=== PATIENT | male | born 1995 | race Hispanic/Latino ===

== ENCOUNTER 2021-08-08 09:11 | Emergency (ER) | payer SELFPAY ==
[2021-08-08] MEDS ORDERED: IBUPROFEN 200 MG TAB PO ONE (09:29)
[2021-08-08 10:42] LABS: SARS-COV-2 RT PCR POSITIVE (NEGATIVE)
--- NOTE | 2021-08-08 10:52 | EDPHYS ---
Physician Documentation [facility] Name: Palomo De La Torre Age: 25 yrs Sex: Male : 1995 Arrival Date: 08/08/2021 Time: 09:12 Bed Waiting Private MD: MANUELA Physician Ibrahima Fiore HPI: 08/08 10:49 This 25 yrs old Male presents to ER via Ambulatory with complaints of body kb aches, Sore Throat, Chest Pain, Numbness. 10:49 The patient or guardian reports flu symptoms, low-grade fever, myalgias. Onset: The kb symptoms/episode began/occurred this morning. Severity of symptoms: At their worst the symptoms were moderate, in the emergency department the symptoms are unchanged. Modifying factors: The symptoms are alleviated by nothing, the symptoms are aggravated by nothing. Associated signs and symptoms: Pertinent positives: fever, sore throat, Pertinent negatives: chest pain, diarrhea, ear ache, nausea, rhinorrhea, vomiting. The patient has not experienced similar symptoms in the past. The patient has not recently seen a physician. Pt reports headache, bodyaches, sore throat and chills that started this morning and have gotten worse. Historical: - Allergies: 09:26 No Known Allergies; iw - Home Meds: 09:26 None [Active]; iw - PMHx: 09:26 None; iw - PSHx: 09:26 None; iw - Immunization history:: Client reports receiving the 1st dose of the Covid vaccine. - Social history:: Smoking status: Patient reports the use of cigarette tobacco products, smokes one-half pack cigarettes per day. ROS: 10:49 Respiratory: Negative for shortness of breath, cough, wheezing, and pleuritic chest kb pain. 10:49 Constitutional: Positive for body aches, chills, fever. 10:49 ENT: Positive for sore throat. 10:49 Neuro: Positive for headache. 10:49 All other systems are negative. Exam: 10:49 Constitutional: This is a well developed, well nourished patient who is awake, alert, kb and in no acute distress. Head/Face: Normocephalic, atraumatic. ENT: Moist Mucous membranes Cardiovascular: Regular rate and rhythm with a normal S1 and S2. No gallops, murmurs, or rubs. No pulse deficits. Respiratory: Respirations even and unlabored. No increased work of breathing. Talking in full sentences Skin: Warm, dry with normal turgor. Normal color. MS/ Extremity: Pulses equal, no cyanosis. Neurovascular intact. Full, normal range of motion. Neuro: Awake and alert, GCS 15, oriented to person, place, time, and situation. Moves all extremities. Normal gait. Psych: Awake, alert, with orientation to person, place and time. Behavior, mood, and affect are within normal limits. Vital Signs: 09:23 BP 134 / 67; Pulse 76; Resp 18; Temp 100.7; Pulse Ox 100% ; Weight 77.11 kg; Height 5 iw ft. 8 in. (172.72 cm); Pain 8/10; 09:23 Body Mass Index 25.85 (77.11 kg, 172.72 cm) iw MDM: 09:28 Patient medically screened. kb 10:50 Data reviewed: vital signs, nurses notes. Data interpreted: Pulse oximetry: on room air kb is 100 %. Interpretation: normal. Counseling: I had a detailed discussion with the patient and/or guardian regarding: the historical points, exam findings, and any diagnostic results supporting the discharge/admit diagnosis, lab results, the need for outpatient follow up, a family practitioner, to return to the emergency department if symptoms worsen or persist or if there are any questions or concerns that arise at home. 08/08 09:28 Order name: COVID-19/FLU A+B (Document "Date of Onset" if Symptomatic); Complete Time: kb 10:43 Administered Medications: 09:30 Drug: Ibuprofen 600 mg Route: PO; iw Disposition: 08/09 08:42 Co-signature as Attending Physician, Ibrahima Fiore MD I agree with the assessment and kirk plan of care. Disposition Summary: 08/08/21 10:50 Discharge Ordered Location: Home kb Condition: Stable kb Diagnosis - Coronavirus infection, unspecified kb Followup: kb - With: Emergency Department - When: As needed - Reason: Worsening of condition Followup: kb - With: Private Physician - When: 2 - 3 days - Reason: Recheck today's complaints, Continuance of care, Re-evaluation by your physician Discharge Instructions: - Discharge Summary Sheet kb - Viral Respiratory Infection, [id number] kb - COVID-19 kb Forms: - Medication Reconciliation Form kb - Thank You Letter kb - Antibiotic Education kb - Prescription Opioid Use kb Signatures: Dispatcher [employer] EDTeri Martinez, METAL DEALER-C METAL DEALER-Ibrahima Combs MD MD cha Williams, Irene, MARY RN iw Corrections: (The following items were deleted from the chart) 08/08 09:26 09:26 PMHx: Unable to Obtain; iw iw
--- NOTE | 2021-08-08 10:52 | ER ---
Nurse's Notes [facility] Name: Palomo De La Torre Age: 25 yrs Sex: Male : 1995 Arrival Date: 08/08/2021 Time: 09:12 Bed Waiting Private MD: Diagnosis: Coronavirus infection, unspecified Presentation: 08/08 09:23 Chief complaint: Patient states: headache, shaking, bodyaches, sore throat that started iw this morning. Coronavirus screen: Vaccine status: Patient reports receiving the 1st dose of the Covid vaccine. sore throat. Ebola Screen: Patient negative for fever greater than or equal to 101.5 degrees Fahrenheit, and additional compatible Ebola Virus Disease symptoms Patient denies exposure to infectious person. Patient denies travel to an Ebola-affected area in the 21 days before illness onset. No symptoms or risks identified at this time. Initial Sepsis Screen: Does the patient meet any 2 criteria? No. Patient's initial sepsis screen is negative. Does the patient have a suspected source of infection? No. Patient's initial sepsis screen is negative. Risk Assessment: Do you want to hurt yourself or someone else? Patient reports no desire to harm self or others. Onset of symptoms was August 08, 2021. 09:23 Method Of Arrival: Ambulatory iw 09:23 Acuity: DILLON 4 iw Triage Assessment: :26 General: Appears in no apparent distress. comfortable, Behavior is calm, cooperative. iw Pain: Complains of pain in bodyaches. Historical: - Allergies: 09: No Known Allergies; iw - Home Meds: : None [Active]; iw - PMHx: : None; iw - PSHx: : None; iw - Immunization history:: Client reports receiving the 1st dose of the Covid vaccine. - Social history:: Smoking status: Patient reports the use of cigarette tobacco products, smokes one-half pack cigarettes per day. Screenin:30 Abuse screen: Denies threats or abuse. Denies injuries from another. Nutritional iw screening: No deficits noted. Tuberculosis screening: No symptoms or risk factors identified. Fall Risk None identified. Assessment: 09:30 General: Appears in no apparent distress. uncomfortable, Behavior is calm, cooperative. iw Pain: Complains of pain in body aches. Respiratory: Airway is patent Respiratory effort is even, unlabored, Breath sounds are clear bilaterally. EENT: Throat is clear. Vital Signs: 09:23 BP 134 / 67; Pulse 76; Resp 18; Temp 100.7; Pulse Ox 100% ; Weight 77.11 kg; Height 5 iw ft. 8 in. (172.72 cm); Pain 8/10; 09:23 Body Mass Index 25.85 (77.11 kg, 172.72 cm) iw ED Course: 09:12 Patient arrived in ED. as :26 Triage completed. iw 09: Arm band placed on right wrist. iw 09:27 Teri Soto FNP-C is PHCP. kb 09:27 Ibrahima Fiore MD is Attending Physician. kb 09:30 Jessica Bae, RN is Primary Nurse. iw 09:30 No provider procedures requiring assistance completed. iw Administered Medications: : Drug: Ibuprofen 600 mg Route: PO; iw Outcome: 10:50 Discharge ordered by . kb 11:05 Patient left the ED. iw Signatures: Teri Soto FNP-C FNP-Raisa Mcdaniels as Jessica Bae, RN RN iw Corrections: (The following items were deleted from the chart) : 09:26 PMHx: Unable to Obtain; iw iw
[2021-08-08 11:12] VITALS: BP 134/67; TEMP 100.7; O2SAT 100
== END 2021-08-08 11:05 | disposition home or self-care (01) ==
LOC: ER 09:11
DX: U07.1 COVID-19 (principal); F17.210 Nicotine dependence, cigarettes, uncomplicated
CPT/HCPCS: 0240U; 99282

== ENCOUNTER 2021-09-28 19:55 | Emergency (ER) | payer SELFPAY ==
--- OUTSIDE RECORDS SUMMARY | 2021-09-28 19:59 | XMS REPORT | Continuity of Care Document ---
:1995 Author Organization [facility] t Address [address] [place] [address] Care Team Providers Name Role Phone Unavailable Unavailable Unavailable Payers Payer Name Policy Type Policy Number Effective Date Expiration Date S ource Problems This patient has no known problems. Allergies, Adverse Reactions, Alerts Allergy Allergy Status Severity Reaction(s) Onset Inactive Treating Comm ents Source Name Type Date Date Clinician No Known DA Active U 2017-0 [facility] Allergie 01-31 [facility] Medications This patient has no known medications. Procedures This patient has no known procedures. Results This patient has no known results.
--- NOTE | 2021-09-28 21:13 | RAD REPORT ---
EXAM DESCRIPTION: CT - CTHCSPWOC - 09/28/2021 8:56 pm CLINICAL HISTORY: Trauma, head and neck injury. trauma COMPARISON: No comparisons TECHNIQUE: Axial 5 mm thick images of the head were obtained. Axial 2 mm thick images of the cervical spine were obtained with sagittal and coronal reconstruction images generated and reviewed. All CT scans are performed using dose optimization technique as appropriate and may include automated exposure control or mA/KV adjustment according to patient size. FINDINGS: CT HEAD WITHOUT CONTRAST: No acute hemorrhage, hydrocephalus or extra-axial collection is identified.No areas of brain edema or midline shift. The paranasal sinuses and mastoids are clear.The calvarium is intact. CT CERVICAL SPINE WITHOUT CONTRAST: No fracture or subluxation.No prevertebral soft tissues swelling is identified. IMPRESSION: No acute intracranial or cervical spine findings.
--- NOTE | 2021-09-28 21:15 | RAD REPORT ---
EXAM DESCRIPTION: CT - CTFB CLINICAL HISTORY: TRAUMA Facial pain and swelling. COMPARISON: No comparisons TECHNIQUE: Axial 2 mm thick images of the face were obtained with sagittal and coronal reconstructio n images. All CT scans are performed using dose optimization technique as appropriate and may include automated exposure control or mA/KV adjustment according to patient size. FINDINGS: No acute facial bone fracture is seen.The mandible is intact. The globes and orbital contents are grossly unremarkable.The paranasal sinuses and mastoids are clear . IMPRESSION: Negative for facial bone fracture.
[2021-09-28] MEDS ORDERED: TETANUS & DIPHTHERIA TOX,ADULT 0.5 ML VIAL ONE (21:36)
[2021-09-28] MEDS ORDERED: HYDROCODONE/APAP 7.5/325 MG TAB ONE (21:37)
[2021-09-28] MEDS ORDERED: LIDOCAINE 1% 20 ML MDV ONE (22:13)
--- NOTE | 2021-09-28 22:50 | ER ---
Nurse's Notes [facility] Name: Palomo De La Torre Age: 25 yrs Sex: Male : 1995 Arrival Date: 09/28/2021 Time: 19:58 Bed 15 Private MD: Diagnosis: Concussion with loss of consciousness of unspecified duration;Laceration without foreign body of nose;Contusion of unspecified part of head, initial encounter Presentation: 09/28 20:06 Chief complaint: Patient states: States a medal tarik fell from about 20 ft and struck me ll3 in the face, C/O H/A, Confirmed LOC. Coronavirus screen: At this time, the client does not indicate any symptoms associated with coronavirus-19. Ebola Screen: No symptoms or risks identified at this time. Initial Sepsis Screen: Does the patient meet any 2 criteria? No. Patient's initial sepsis screen is negative. Does the patient have a suspected source of infection? No. Patient's initial sepsis screen is negative. Risk Assessment: Do you want to hurt yourself or someone else? Patient reports no desire to harm self or others. Onset of symptoms was September 28, 2021 at 15:00. Care prior to arrival: Medication(s) given: Motrin, 1600 mg. 20:06 Method Of Arrival: Ambulatory ll3 20:06 Acuity: DILLON 3 ll3 Triage Assessment: 20:10 General: Appears in no apparent distress. uncomfortable, Behavior is calm, cooperative. ll3 Pain: Complains of pain in left side of nose, H/A. Neuro: Level of Consciousness is awake, alert, obeys commands, Oriented to person, place, time, situation. Cardiovascular: Patient's skin is warm and dry. Respiratory: Respiratory effort is even, unlabored, Respiratory pattern is regular, symmetrical. Derm: Wound noted left side of nose. Historical: - Home Meds: 20:10 Minocycline Oral once daily [Active]; ll3 - PMHx: 20:10 Asthma; ll3 - Immunization history:: Client reports receiving the 1st dose of the Covid vaccine. - Social history:: Smoking status: Reported history of juuling and/or vaping. Screenin:30 Abuse screen: Denies threats or abuse. Denies injuries from another. Nutritional tk1 screening: No deficits noted. Tuberculosis screening: No symptoms or risk factors identified. Fall Risk None identified. Assessment: 21:30 General: Appears uncomfortable, well groomed, well developed, well nourished, Behavior tk1 is calm, cooperative, appropriate for age. Pain: Complains of pain in face Pain does not radiate. Pain currently is 8 out of 10 on a pain scale. Quality of pain is described as sharp, Pain began 4 hours ago. Is continuous. Cardiovascular: No deficits noted. Capillary refill < 3 seconds is brisk in bilateral fingers Clubbing of nail beds is absent. Respiratory: Airway is patent Trachea midline Respiratory effort is even, unlabored, Respiratory pattern is regular, symmetrical. GI: No deficits noted. No signs and/or symptoms were reported involving the gastrointestinal system. : No deficits noted. No signs and/or symptoms were reported regarding the genitourinary system. EENT: No deficits noted. No signs and/or symptoms were reported regarding the EENT system. Derm: Skin Laceration to left side of nose at left nare. Bleeding controlled. Musculoskeletal: No deficits noted. No signs and/or symptoms reported regarding the musculoskeletal system. Range of motion: intact in all extremities. Injury Description: Laceration sustained to left side of nose is clean, 0.5 to 2.5 cm long, not bleeding, was sustained 4-6 hours ago. 22:30 Reassessment: No changes from previously documented assessment. Patient is alert, tk1 oriented x 3, equal unlabored respirations, skin warm/dry/pink. 23:15 Reassessment: Triple antibiotic applied to suture laceration on nose. Covered with band tk1 aid. D/C per PA order. Discharge/Prescriptions instructions given to patient and SO. Verbalized understanding. Vital Signs: 20:06 BP 143 / 47; Pulse 75; Resp 16; Temp 98.1(TE); Pulse Ox 99% on R/A; Weight 79.38 kg ll3 (R); Height 5 ft. 8 in. (172.72 cm) (R); Pain 8/10; 21:30 BP 136 / 62 RA Supine (auto/reg); Pulse 69 MON; Resp 18 S; Pulse Ox 100% on R/A; Pain tk1 8/10; 22:25 Pain 4/10; tk1 22:30 BP 140 / 75 RA Supine (auto/reg); Pulse 74 MON; Resp 16 S; Temp 97.9(O); Pulse Ox 100% tk1 on R/A; Pain 5/10; 20:06 Body Mass Index 26.61 (79.38 kg, 172.72 cm) ll3 Sarah Coma Score: 20:30 Eye Response: spontaneous(4). Verbal Response: oriented(5). Motor Response: obeys cp commands(6). Total: 15. ED Course: 19:58 Patient arrived in ED. ja2 20:09 Triage completed. ll3 20:10 Arm band placed on left wrist. ll3 20:15 Ibrahima Bermudez PA is PHCP. cp 20:15 Cordell Butterfield MD is Attending Physician. cp 20:20 Noemy Sandy is Primary Nurse. tk1 20:56 CT Facial Bones W/O Con In Process Unspecified. EDMS 20:56 CT Head C Spine In Process Unspecified. EDMS 21:30 Patient has correct armband on for positive identification. Bed in low position. Call tk1 light in reach. Side rails up X 1. Adult w/ patient. Pulse ox on. NIBP on. 22:45 Assist provider with laceration repair on nose that was 2.5 cm. or less using sutures. tk1 Set up tray. Performed by Ibrahima PURVIS Patient tolerated well. 22:45 Patient did not have IV access during this emergency room visit. tk1 Administered Medications: 21:37 Drug: Hydrocodone-Acetaminophen (7.5 mg-325 mg) 1 tabs Route: PO; tk1 22:25 Follow up: Pain 4/10 Adult; Response: Pain is decreased tk1 21:37 Drug: Tetanus-Diphtheria Toxoid Adult 0.5 ml {Improvement Specialist: Bringrr. Exp: tk1 10/17/2021. Lot #: [id number]. } Route: IM; Site: left deltoid; 22:25 Follow up: Response: No adverse reaction tk1 22:26 Not Given (Duplicate Order): Tetanus-Diphtheria Toxoid Adult 0.5 ml IM once tk1 22:30 Drug: Lidocaine (2 %) 5 ml {Note: Per HYUN Bro.} Volume: 5 ml; Route: tk1 Infiltration; Site: wound; Outcome: 22:45 Discharged to home ambulatory, with family. tk1 22:45 Condition: stable 22:45 Discharge instructions given to patient, family, Instructed on discharge instructions, follow up and referral plans. medication usage, Demonstrated understanding of instructions, follow-up care, medications, Prescriptions given X 2. 22:49 Discharge ordered by . pattie 23:21 Patient left the ED. tk1 Signatures: Dispatcher [employer] EDMS Ibrahima Bermudez PA PA cp Alexander, Jessica ja2 Alexandra Venegas RN RN ll3 Noemy Sandy tk1 Corrections: (The following items were deleted from the chart) 20:13 20:06 Chief complaint: Patient states: States a medal tarik fell from about 20 ft and ll3 struck me in the face, C/O H/A ll3 : 22:27 General: Appears uncomfortable, well groomed, well developed, well nourished, tk1 Behavior is calm, cooperative, appropriate for age, tk1 : 22:27 Pain: Complains of pain in face Pain does not radiate. Pain currently is 8 out of tk1 10 on a pain scale. Quality of pain is described as sharp, Pain began 4 hours ago. Is continuous, tk1 : 22:27 Cardiovascular: No deficits noted. Capillary refill < 3 seconds is brisk in tk1 bilateral fingers Clubbing of nail beds is absent tk1 : 22:27 Respiratory: Airway is patent Trachea midline Respiratory effort is even, tk1 unlabored, Respiratory pattern is regular, symmetrical, tk1 : 22:27 GI: No deficits noted. No signs and/or symptoms were reported involving the tk1 gastrointestinal system. tk1 : 22:27 : No deficits noted. No signs and/or symptoms were reported regarding the tk1 genitourinary system. tk1 22:27 EENT: No deficits noted. No signs and/or symptoms were reported regarding the tk1 EENT system. tk1 : 22:27 Derm: Skin Laceration to left side of nose at left nare. Bleeding controlled. tk1 tk1 :41 22:27 Musculoskeletal: No deficits noted. No signs and/or symptoms reported regarding tk1 the musculoskeletal system. Range of motion: intact in all extremities, tk1 : 22:27 Injury Description: Laceration sustained to left side of nose is clean, 0.5 to tk1 2.5 cm long, not bleeding, was sustained 4-6 hours ago. tk1
--- NOTE | 2021-09-28 22:50 | EDPHYS ---
Physician Documentation [facility] Name: Palomo De La Torre Age: 25 yrs Sex: Male : 1995 Arrival Date: 09/28/2021 Time: 19:58 Bed 15 Private MD: ED Physician Cordell Butterfield HPI: 09/28 20:30 This 25 yrs old Male presents to ER via Ambulatory with complaints of Fall cp Injury, FACE INNJURY. 20:30 The patient or guardian reports injury, a laceration, swelling, tenderness. cp 20:30 The complaints affect the nose. Context of injury: The problem was sustained at work, cp resulted from a direct blow, metal pipe fell approximately 20 feet and struck patient in the head and across the nose. Onset: The symptoms/episode began/occurred today. Associated signs and symptoms: Loss of consciousness: This patient experience a loss of consciousness, that was brief, Pertinent negatives: incontinence, neck pain, seizure, vomiting. Historical: - Home Meds: 20:10 Minocycline Oral once daily [Active]; ll3 - PMHx: 20:10 Asthma; ll3 - Immunization history:: Client reports receiving the 1st dose of the Covid vaccine. - Social history:: Smoking status: Reported history of juuling and/or vaping. ROS: 20:35 Constitutional: Negative for body aches, chills, fever, poor PO intake. cp 20:35 Neck: Negative for pain with movement, pain at rest, stiffness. cp 20:35 Cardiovascular: Negative for chest pain, edema, palpitations. 20:35 Respiratory: Negative for cough, shortness of breath, wheezing. 20:35 Abdomen/GI: Negative for abdominal pain, nausea, vomiting, and diarrhea. 20:35 Skin: Positive for laceration(s), of the nose. 20:35 Neuro: Positive for loss of consciousness, Negative for altered mental status, weakness. 20:35 All other systems are negative. Exam: 20:45 Constitutional: The patient appears in no acute distress, alert, awake, cp non-diaphoretic, non-toxic, well developed, well nourished, uncomfortable. 20:45 Head/face: Noted is swelling, that is moderate, of the nose, tenderness, that is cp moderate, of the nose, Sinus tenderness, is not appreciated. 20:45 Eyes: Periorbital structures: appear normal, Pupils: equal, round, and reactive to light and accomodation, Extraocular movements: intact throughout, Conjunctiva: normal, no exudate, no injection, Lids and lashes: appear normal, bilaterally. 20:45 ENT: External ear(s): are unremarkable, Nose: Nasal septum: is midline, no septal hematoma appreciated, bleeding, is seen from the left nare, and is minimal, Mouth: Lips: moist, Oral mucosa: moist, Posterior pharynx: Airway: no evidence of obstruction, patent, Voice: is normal. 20:45 Neck: External neck: tenderness, that is mild, of the left mid cervical area, right mid cervical area, left trapezius, lower cervical area and right trapezius, ROM/movement: limited range of motion, is not appreciated, nuchal rigidity, is not appreciated. 20:45 Chest/axilla: Inspection: normal, Palpation: is normal, no crepitus, no tenderness. 20:45 Cardiovascular: Rate: normal, Rhythm: regular. 20:45 Respiratory: the patient does not display signs of respiratory distress, Respirations: normal, no use of accessory muscles, no retractions, labored breathing, is not present, Breath sounds: are clear throughout, no decreased breath sounds. 20:45 Abdomen/GI: Exam negative for discomfort, distension, guarding, Inspection: abdomen appears normal. 20:45 Back: pain, is absent, ROM is normal. 20:45 Neuro: Orientation: to person, place \T\ time. Mentation: is normal, Cerebellar function: is grossly normal, Motor: moves all fours, strength is normal, Sensation: is normal. Vital Signs: 20:06 BP 143 / 47; Pulse 75; Resp 16; Temp 98.1(TE); Pulse Ox 99% on R/A; Weight 79.38 kg ll3 (R); Height 5 ft. 8 in. (172.72 cm) (R); Pain 8/10; 21:30 BP 136 / 62 RA Supine (auto/reg); Pulse 69 MON; Resp 18 S; Pulse Ox 100% on R/A; Pain tk1 8/10; 22:25 Pain 4/10; tk1 22:30 BP 140 / 75 RA Supine (auto/reg); Pulse 74 MON; Resp 16 S; Temp 97.9(O); Pulse Ox 100% tk1 on R/A; Pain 5/10; 20:06 Body Mass Index 26.61 (79.38 kg, 172.72 cm) ll3 Sarah Coma Score: 20:30 Eye Response: spontaneous(4). Verbal Response: oriented(5). Motor Response: obeys cp commands(6). Total: 15. Laceration: 22:47 Wound Repair of 1.5cm ( 0.6in ) subcutaneous laceration to left side of nose. Linear cp shaped.. Distal neuro/vascular/tendon intact. Anesthesia: Wound infiltrated with 3 mls of 1% lidocaine. Wound prep: Simple cleansing by nurse. Skin closed with 2 6-0 Prolene using simple sutures and sterile technique. Dressed with Bacitracin. Patient tolerated well. MDM: 20:28 Patient medically screened. cp 21:00 Differential diagnosis: Contusion of Hematoma on Laceration of Intracranial bleed- cp Concussion cerebral contusion. 22:48 Data reviewed: vital signs, nurses notes, radiologic studies, CT scan. cp 22:48 Counseling: I had a detailed discussion with the patient and/or guardian regarding: the cp historical points, exam findings, and any diagnostic results supporting the discharge/admit diagnosis, radiology results, the need for outpatient follow up, a family practitioner, to return to the emergency department if symptoms worsen or persist or if there are any questions or concerns that arise at home. Response to treatment: the patient's symptoms have markedly improved after treatment, and as a result, I will discharge patient. Special discussion: Based on the patient's history, exam and DX evaluation, there is no indication for emergent intervention or inpatient TX. It is understood by the patient/guardian that if the SXs persist or worsen they need to return immediately for re-evaluation. 09/28 20:29 Order name: CT Facial Bones W/O Con; Complete Time: 21:20 09/28 20:29 Order name: CT Head C Spine; Complete Time: 21:20 09/28 21:21 Interpretation: Reviewed report. 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 Exp: tk1 10/17/2021. Lot #: [id number]. } Route: IM; Site: left deltoid; 22:25 Follow up: Response: No adverse reaction 22:26 Not Given (Duplicate Order): Tetanus-Diphtheria Toxoid Adult 0.5 ml IM once 22:30 Drug: Lidocaine (2 %) 5 ml {Note: Per HYUN Bro.} Volume: 5 ml; Route: tk1 Infiltration; Site: wound; Disposition: 23:25 Co-signature as Attending Physician, Cordell Butterfield MD. rn Disposition Summary: 09/28/21 22:49 Discharge Ordered Location: Home cp Problem: new cp Symptoms: have improved cp Condition: Stable cp Diagnosis - Concussion with loss of consciousness of unspecified duration cp - Laceration without foreign body of nose cp - Contusion of unspecified part of head, initial encounter cp Followup: cp - With: Private Physician - When: 1 - 2 days - Reason: Recheck today's complaints Discharge Instructions: - Discharge Summary Sheet cp - Concussion, Adult cp - Head Injury, Adult cp - Facial Laceration cp Forms: - Medication Reconciliation Form cp - Thank You Letter cp - Antibiotic Education cp - Prescription Opioid Use cp Prescriptions: - Cephalexin 500 mg Oral Capsule - take 1 capsule by ORAL route every 8 hours for 10 days; 30 capsule; Refills: 0, cp Product Selection Permitted - Ibuprofen 800 mg Oral Tablet - take 1 tablet by ORAL route every 8 hours As needed take with food; 30 tablet; cp Refills: 0, Product Selection Permitted Signatures: Dispatcher [employer] Cordell Garcia MD MD rn Page, Corey, PA PA cp Loubet, Lynsea, RN RN ll3 Noemy Sandy tk1
== END 2021-09-28 23:21 | disposition home or self-care (01) ==
LOC: ER 19:55
PROC: 0JQ10ZZ Repair Face Subcutaneous Tissue and Fascia, Open Approach (ICD-10-PCS; principal; 2021-09-28)
DX: S06.0X9A Concussion with loss of consciousness of unspecified duration, initial encounter (principal); S01.21XA Laceration without foreign body of nose, initial encounter; W22.8XXA Striking against or struck by other objects, initial encounter; Y92.89 Other specified places as the place of occurrence of the external cause; Y99.8 Other external cause status; Z23 Encounter for immunization
CPT/HCPCS: 70450; 70486; 72125; 76377; 90471; 90714; 99284